=== PATIENT | male | born 1935 | race Caucasian/White ===

== ENCOUNTER → 2017-09-07 | Outpatient (CLI) | payer OTHER ==
[~2017-09-07] MED LIST: ASPIR 8181 M1 PO; FISH OIL 1,2001 EAC5 PO; Feosol PO; GINKGO BILOBA120 M1 PO; Ginkgo Biloba PO; KLOR-CON 1010 ME1 PO; LASIX40 MG PO; Lasix PO; NIACIN500 M4 PO; NORCO 5/3251 TABLET PO; NORVASC5 MG PO; PERCOCET 5/31 TABLET PO; PRAVACHOL40 MG PO; Theragran PO; VALSARTAN160 MG PO; VITAMIN D-32000 UNI2 PO; Vicodin,Norco 5/325 PO; Vitamin D PO; ZYLOPRIM100 MG PO; Zyloprim PO
== END | disposition home or self-care (01) ==
LOC: CDC 10:49
DX: Z01.810 Encounter for preprocedural cardiovascular examination (principal)
CPT/HCPCS: 93000

== ENCOUNTER 2017-09-14 06:57 | Day surgery (SDC) | payer OTHER ==
[~2017-09-14] VITALS: Ht 172.7 cm; Wt 79.8 kg
[~2017-09-14 06:57] MED LIST changes: -NORCO 5/3251 TABLET PO; -VALSARTAN160 MG PO
[2017-09-14] MEDS ORDERED: VALSARTAN160 MG PO (08:14)
[2017-09-14 09:20] VITALS: BP 122/65
[2017-09-14] MEDS ORDERED: NORCO 5/3251 TABLET PO (09:58)
[2017-09-14 11:31] VITALS: BP 137/71
[2017-09-14 12:07] VITALS: BP 1172/90
[2017-09-14 12:30] VITALS: BP 124/67
== END 2017-09-14 12:35 | disposition home or self-care (01) ==
LOC: SDC 06:57
PROC: 0YU60JZ Supplement Left Inguinal Region with Synthetic Substitute, Open Approach (ICD-10-PCS; principal; 2017-09-14)
DX: K40.90 Unilateral inguinal hernia, without obstruction or gangrene, not specified as recurrent (principal); I10 Essential (primary) hypertension; E78.5 Hyperlipidemia, unspecified; Z79.82 Long term (current) use of aspirin
CPT/HCPCS: C1781; J0131; J1100; J1170; J1885; J2405; J3010